=== PATIENT | female | born 1950 | race Caucasian/White ===

== ENCOUNTER → 2016-05-27 | Outpatient (CLI) | payer BC ==
[~2016-05-27] MED LIST: CRESTOR10 MG PO; CYMBALTA60 MG PO; DIOVAN160 MG PO; LASIX40 MG PO; NEURONTIN 300300 MG PO; NOVOLOG 10100 UNITS/ INJ; PLAVIX 75 MG TA75 MG PO; TRESIBA SQ; TYLENOL 325MG325 MG PO; VITAMIN D350000 UNIT PO
== END ==
LOC: LAB 08:59
PROVIDERS: Internal Medicine Nephrology
DX: N18.3 Chronic kidney disease, stage 3 (moderate) (principal)
CPT/HCPCS: 36415; 80048; 82043; 82570

== ENCOUNTER → 2020-03-09 | Outpatient (CLI) | payer MEDICARE ==
[~2020-03-09] MED LIST changes: +AUGMENTIN 875-1 EACH PO; +COZAAR 25MG TAB25 MG PO; -CRESTOR10 MG PO; +CRESTOR20 MG PO; +HUMALOG100 UNIT/3 SQ; +LASIX 40 MG TAB40 MG PO; +NEURONTIN600 MG PO; -NOVOLOG 10100 UNITS/ INJ; +TRESIBA FL100 UNIT/1 SQ
== END ==
LOC: KOH-I 09:14
DX: R26.9 Unspecified abnormalities of gait and mobility (principal)
CPT/HCPCS: 70450

== ENCOUNTER → 2020-04-12 | Outpatient (CLI) | payer MEDICARE | LOC: EXRD 10:30 | DX: N95.9 Unspecified menopausal and perimenopausal disorder (principal); M85.852 Other specified disorders of bone density and structure, left thigh | CPT/HCPCS: 77080 ==

== ENCOUNTER 2020-06-13 00:14 | Emergency (ER) | payer MEDICARE ==
[2020-06-13 01:13] LABS: HEMOGLOBIN 11.4 gm/dl (12.3-15.3); RED BLOOD COUNT 3.73 M/UL (4.00-5.10); WHITE BLOOD COUNT 8.5 K/UL (4.5-11.0)
== END 2020-06-13 01:40 | disposition home or self-care (01) ==
LOC: ER1 00:14
PROVIDERS: Family Medicine
DX: Z00.00 Encounter for general adult medical examination without abnormal findings (principal); E11.22 Type 2 diabetes mellitus with diabetic chronic kidney disease; N18.30 Chronic kidney disease, stage 3 unspecified; Z90.49 Acquired absence of other specified parts of digestive tract; Z90.710 Acquired absence of both cervix and uterus; Z90.89 Acquired absence of other organs; Z88.2 Allergy status to sulfonamides; Z79.4 Long term (current) use of insulin
CPT/HCPCS: 80053; 85025; 93005; 99283

== ENCOUNTER → 2021-02-06 | Outpatient (CLI) | payer MEDICARE ==
[2021-02-06 15:36] LABS: ADENOVIRUS F 40/41 Not Detected (Negative); ASTROVIRUS Not Detected (Negative); CAMPYLOBACTER Not Detected (Negative); CLOSTRIDIUM DIFFICILE TOX A/B Not Detected (Negative); CRYPTOSPORIDIUM Not Detected (Negative); E.COLI 0157 Not Detected (Negative); ENTAMOEBA HISTOLYTICA Not Detected (Negative); ENTEROAGGREGATIVE E.COLI (EAEC Not Detected (Negative); ENTEROPATHOGENIC E.COLI (EPEC) Not Detected (Negative); ENTEROTOXIGENIC E.COLI (ETEC) Not Detected (Negative); GIARDIA LAMBLIA Not Detected (Negative); NOROVIRUS GI/GII Not Detected (Negative); PLESIOMONAS SHIGELLOIDES Not Detected (Negative); ROTOVIRUS A Not Detected (Negative); SALMONELLA Not Detected (Negative); SAPOVIRUS Not Detected (Negative); SHIG/ENTEROINVAS.ECOLI (EIEC) Not Detected (Negative); SHIGA-LIK TOX.PRO.E.COLI (STEC Not Detected (Negative); VIBRIO Not Detected (Negative); VIBRIO CHOLERAE Not Detected (Negative); YERSINIA ENTEROCOLITICA Not Detected (Negative)
== END ==
LOC: LBRF 14:39
PROVIDERS: Family Medicine
DX: R19.7 Diarrhea, unspecified (principal)
CPT/HCPCS: 87507; 89055

== ENCOUNTER 2021-03-24 08:53 | Inpatient (IN) | payer MEDICARE ==
[~2021-03-24] VITALS: Ht 165.1 cm; Wt 70.8 kg
[2021-03-24 10:13] LABS: HEMOGLOBIN 10.9 gm/dl (12.3-15.3); RED BLOOD COUNT 3.62 M/UL (4.00-5.10); WHITE BLOOD COUNT 5.9 K/UL (4.5-11.0)
[2021-03-24 10:38] LABS: BUN/CREATININE RATIO 15 (0-10)
[2021-03-24] MEDS ORDERED: HUMALOG100 UNIT/3 SQ (13:57)
[2021-03-24] MEDS ORDERED: CARVEDILOL3.125 MG PO (13:58)
[2021-03-24] MEDS ORDERED: FARXIGA5 MG PO (13:58)
[2021-03-24] MEDS ORDERED: OZEMPIC0.25 MG/0. SQ (13:58)
[2021-03-24] MEDS ORDERED: VITAMIN D21250 MCG PO (13:59)
[2021-03-24] MEDS ORDERED: CRESTOR10 MG PO (13:59)
[2021-03-24] MEDS ORDERED: PROTONIX 40 MG40 M1 PO (13:59)
[2021-03-25 07:32] LABS: HEMOGLOBIN 10.5 gm/dl (12.3-15.3); RED BLOOD COUNT 3.51 M/UL (4.00-5.10); WHITE BLOOD COUNT 5.3 K/UL (4.5-11.0)
[2021-03-26] MEDS ORDERED: DECADRON6 MG PO (12:29)
== END 2021-03-27 16:14 | disposition home or self-care (01) | DRG 177 ==
LOC: ER1 08:53 → CDU 13:10 → M/S 16:06
PROVIDERS: Emergency Medicine; Physician Assistant Medical; ADMIT Internal Medicine
PROC: XW033E5 Introduction of Remdesivir Anti-infective into Peripheral Vein, Percutaneous Approach, New Technology Group 5 (ICD-10-PCS; principal; 2021-03-24)
PROC: 8E0ZXY6 Isolation (ICD-10-PCS; 2021-03-24)
PROC: 3E0333Z Introduction of Anti-inflammatory into Peripheral Vein, Percutaneous Approach (ICD-10-PCS; 2021-03-24)
DX: U07.1 COVID-19 (principal); J96.01 Acute respiratory failure with hypoxia; J12.82 Pneumonia due to coronavirus disease 2019; I12.9 Hypertensive chronic kidney disease with stage 1 through stage 4 chronic kidney disease, or unspecified chronic kidney disease; E11.22 Type 2 diabetes mellitus with diabetic chronic kidney disease; N18.30 Chronic kidney disease, stage 3 unspecified; Z79.4 Long term (current) use of insulin; Z86.73 Personal history of transient ischemic attack (TIA), and cerebral infarction without residual deficits; Z90.49 Acquired absence of other specified parts of digestive tract; Z88.2 Allergy status to sulfonamides; Z82.49 Family history of ischemic heart disease and other diseases of the circulatory system; Z83.3 Family history of diabetes mellitus; Z90.710 Acquired absence of both cervix and uterus; Z98.890 Other specified postprocedural states
CPT/HCPCS: 0240U; 36600; 71045; 80048; 80053; 81001; 82550; 82553; 82803; 82962; 83735; 83874; 84484; 85025; 85027; 85379; 87040; 94640; 94664; 99285; J0248; J1100; J1650; J7030; Q9967